=== PATIENT | female | born 1945 | race Caucasian/White ===

== ENCOUNTER 2022-08-07 11:16 | Outpatient (REF) | payer MEDICARE, SELFPAY ==
--- NOTE | ~2022-08-07 | MR_ITS ---
EXAMINATION: MR BRAIN WITHOUT CONTRAST CLINICAL INFORMATION: Encephalopathy. COMPARISON: None available. TECHNIQUE: MRI of the brain was obtained using routine sequences without contrast. FINDINGS: No focal restricted diffusion is demonstrated to suggest acute or subacute cerebral ischemia. No evidence of acute or chronic hemorrhagic products on heme-sensitive imaging. Scattered and partially confluent periventricular, deep white matter, and brainstem T2 FLAIR hyperintensities most commonly seen with mild to moderate underlying microangiopathy. Proportional prominence of the ventricles and sulcal spaces without evidence of obstructive hydrocephalus. No abnormal mass effect. No midline shift. Normal appearance of the pituitary gland. Normal positioning of the cerebellar tonsils. Normal arterial and venous vascular flow voids are present. Normal, homogeneous marrow signal. Mild mucosal thickening of the paranasal sinuses. No signal abnormalities within the mastoids. Bilateral lens extractions. MR/MR head/brain wo con IMPRESSION: 1. No definitively demonstrated acute intracranial abnormalities. 2. 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 Mild generalized cerebral volume loss.
== END 2022-08-07 11:17 | disposition home or self-care (01) ==
LOC: HO.MRI 11:16
PROVIDERS: Visit Provider Psychiatry & Neurology Neurology
DX: G93.40 Encephalopathy, unspecified (principal)
CPT/HCPCS: 70551

== ENCOUNTER 2022-08-09 15:52 | Outpatient (REF) | payer MEDICARE, SELFPAY ==
[2022-08-09 18:21] LABS: Erythrocyte Sedimentation Rate 18 MM/HR (0-20)
[2022-08-09 18:42] LABS: Vitamin B12 771 pg/mL (200-900)
[2022-08-10 20:53] LABS: Lyme Abs Screen <0.90 index
[2022-08-14 21:28] LABS: Treponema pallidum Ab FTA ABS Nonreactive (Nonreactive)
== END 2022-08-09 15:53 | disposition home or self-care (01) ==
LOC: HO.LAB 15:52
PROVIDERS: PCP Internal Medicine; Visit Provider Psychiatry & Neurology Neurology
DX: G93.40 Encephalopathy, unspecified (principal)
CPT/HCPCS: 36415; 82607; 85652; 86617; 86618; 86780